=== PATIENT | male | born 1990 | race African-American/Black ===

== ENCOUNTER 2024-12-16 07:53 | Emergency (ER) | payer SELFPAY ==
[2024-12-16 08:49] LABS: Influenza A Ag Negative; Influenza B Ag Negative; SARS-CoV-2 Antigen Rapid Res Negative (Negative)
--- NOTE | 2024-12-16 08:52 | ER ---
Nurse's Notes [facility] Name: Boaz Bell Age: 34 yrs Sex: Male : 1990 Arrival Date: 12/16/2024 Time: 07:53 Bed IW2 Private MD: Diagnosis: Acute upper respiratory infection, unspecified Presentation: 12/16 08:23 Chief complaint: Patient states: Body aches and nasal congestion that began 2 days ago. ss Coronavirus screen: Client denies travel out of the [place] in the last 14 days. Ebola Screen: Patient denies exposure to infectious person. Patient denies travel to an Ebola-affected area in the 21 days before illness onset. Initial Sepsis Screen: Does the patient meet any 2 criteria? No. Patient's initial sepsis screen is negative. Does the patient have a suspected source of infection? No. Patient's initial sepsis screen is negative. Risk Assessment: Do you want to hurt yourself or someone else? Patient reports no desire to harm self or others. Onset of symptoms was December 14, 2024. 08:23 Method Of Arrival: Ambulatory ss 08:23 Acuity: LATOYA 4 ss Historical: - Allergies: 08:24 No Known Allergies; ss - Home Meds: 08:24 None [Active]; ss - PMHx: 08:24 None; ss - PSHx: 08:24 None; ss - Immunization history:: Client reports receiving the 2nd dose of the Covid vaccine. - Infectious Disease History:: Denies. - Social history:: Smoking status: Reported history of juuling and/or vaping. Screenin:28 Abuse screen: Denies threats or abuse. Denies injuries from another. Nutritional ss screening: No deficits noted. Tuberculosis screening: Never had TB. Assessment: 08:27 General: Appears in no apparent distress. comfortable, Behavior is calm, cooperative. ss General: Reports feeling ill for 1-2 days, Denies fever. Neuro: Level of Consciousness is awake, alert, obeys commands, Oriented to person, place, time, situation. Respiratory: Reports cough that is body aches and nasal congestion x 2 days Airway is patent Respiratory effort is even, unlabored, Respiratory pattern is regular, symmetrical. Derm: Skin is pink, warm \T\ dry. normal. Vital Signs: 08:23 BP 116 / 80; Pulse 65; Resp 14; Temp 98.5(O); Pulse Ox 100% on R/A; Weight 65.77 kg; ss Height 5 ft. 5 in. ; Pain 7/10; 08:23 Body Mass Index 24.13 (65.77 kg, 165.1 cm) ss 08:23 Pain Scale: Adult ss ED Course: 07:57 Patient arrived in ED. mr 08:23 Arm band placed on right wrist. ss 08:24 Triage completed. ss 08:29 Gigi Del Valle DO is Attending Physician. ms3 08:52 Rodger Schwartz DO is Referral Physician. ms3 09:04 No provider procedures requiring assistance completed. Patient did not have IV access ss during this emergency room visit. Administered Medications: No medications were administered Outcome: 08:52 Discharge ordered by MD. ms3 09:04 Discharged to home ambulatory, ss 09:04 Condition: good 09:04 Discharge instructions given to patient, family, Instructed on discharge instructions, follow up and referral plans. medication usage, Demonstrated understanding of instructions, follow-up care, medications, Prescriptions given X 1, 09:04 Patient left the ED. Signatures: Renata Tello, Reg Reg Betzy Garcia, RN RN Gigi Del Valle DO DO ms3
--- NOTE | 2024-12-16 08:52 | EDPHYS ---
Physician Documentation [facility] Name: Boaz Bell Age: 34 yrs Sex: Male : 1990 Arrival Date: 12/16/2024 Time: 07:53 Bed IW2 Private MD: ED Physician Gigi Del Valle HPI: 12/16 08:57 This 34 yrs old Black Male presents to ER via Ambulatory with complaints of Flu ms3 Symptoms. 08:57 34-year-old male with no past medical history presents emergency department for body ms3 aches that been ongoing for 2 days, nausea, chills, congestion, cough. Patient states his discomfort is a 7/10. Patient states he took Benadryl yesterday without relief.. Historical: - Allergies: 08:24 No Known Allergies; ss - Home Meds: 08:24 None [Active]; ss - PMHx: 08:24 None; ss - PSHx: 08:24 None; ss - Immunization history:: Client reports receiving the 2nd dose of the Covid vaccine. - Infectious Disease History:: Denies. - Social history:: Smoking status: Reported history of juuling and/or vaping. ROS: 08:57 MS/Extremity: Negative for injury and deformity, ms3 08:57 Constitutional: Positive for body aches, chills, 08:57 ENT: Positive for nasal discharge, 08:57 Abdomen/GI: Positive for nausea, Exam: 08:57 Constitutional: This is a well developed, well nourished patient who is awake, alert, ms3 and in no acute distress. Cardiovascular: Regular rate and rhythm with a normal S1 and S2. No gallops, murmurs, or rubs. Normal PMI, no JVD. No pulse deficits. Respiratory: Lungs have equal breath sounds bilaterally, clear to auscultation and percussion. No rales, rhonchi or wheezes noted. No increased work of breathing, no retractions or nasal flaring. Abdomen/GI: Soft, non-tender, with normal bowel sounds. No distension or tympany. No guarding or rebound. No evidence of tenderness throughout. Skin: Warm, dry with normal turgor. Normal color with no rashes, no lesions, and no evidence of cellulitis. MS/ Extremity: Pulses equal, no cyanosis. Neurovascular intact. Full, normal range of motion. Vital Signs: 08:23 BP 116 / 80; Pulse 65; Resp 14; Temp 98.5(O); Pulse Ox 100% on R/A; Weight 65.77 kg; ss Height 5 ft. 5 in. ; Pain 7/10; 08:23 Body Mass Index 24.13 (65.77 kg, 165.1 cm) ss 08:23 Pain Scale: Adult ss MDM: 08:40 Medical Screening Exam initiated ms3 08:57 Differential diagnosis: flu, URI, COVID. Data reviewed: vital signs, nurses notes, lab ms3 test result(s), and as a result, I will discharge patient. I considered the following discharge prescriptions or medication management in the emergency department See prescription. Counseling: I had a detailed discussion with the patient and/or guardian regarding the historical points, exam findings, and any diagnostic results supporting the discharge/admit diagnosis, lab results, the need for outpatient follow up, to return to the emergency department if symptoms worsen or persist or if there are any questions or concerns that arise at home. ED course: Discussed negative flu and COVID results with patient. On reevaluation patient is alert and oriented x 4, no apparent distress, nontoxic-appearing, speaking full sentences, ambulatory in the emergency department. Patient to follow-up with Dr. Schwartz in 2 to 3 days. Patient understands agrees with plan. All questions were answered. Return precautions discussed include worsening symptoms, or any other concerns.. 12/16 08:25 Order name: COVID-19 Ag + Flu A+B Ag; Complete Time: 08:51 ss Administered Medications: No medications were administered Disposition Summary: 12/16/24 08:52 Discharge Ordered Notes: Location: Home ms3 Condition: Stable ms3 Diagnosis - Acute upper respiratory infection, unspecified ms3 Followup: ms3 - With: Rodger Schwartz DO - When: 2 - 3 days - Reason: Re-evaluation by your physician Discharge Instructions: - Discharge Summary Sheet ms3 - Upper Respiratory Infection, Adult ms3 Forms: - Work release form bd - Medication Reconciliation Form ms3 - Antibiotic Education ms3 - Prescription Opioid Use ms3 - Patient Portal Instructions ms3 - Leadership Thank You Letter ms3 Prescriptions: - Claritin 10 mg Oral Tablet - take 1 tablet ORAL route once daily As needed; 30 tablet; Refills: 0, Product ms3 Selection Permitted Signatures: Dispatcher [employer] Betzy Mendez, RN RN ss Gigi Del Valle, DO DO ms3
[2024-12-16 09:09] VITALS: BP 116/80; TEMP 98.5; O2SAT 100
== END 2024-12-16 09:04 | disposition home or self-care (01) ==
LOC: ER 07:53
DX: J06.9 Acute upper respiratory infection, unspecified (principal); Z11.52 Encounter for screening for COVID-19
CPT/HCPCS: 36415; 87428